=== PATIENT | male | born 1990 | race American Indian/Alaskan Native ===

== ENCOUNTER 2016-10-25 14:56 | Emergency (ER) | payer OTHER ==
--- NOTE | 2016-10-25 15:06 | Emergency Department Report ---
Chief Complaint: Adult Asthma Stated Complaint: ASTHMA Time Seen by Provider: 10/25/16 15:04 - HPI History of Present Illness: pt c/o asthma exacerbation since Tuesday. PT states he now has a pain under his R rib - ROS Review of Systems: + sob + chest pain - Exam Physical Exam: obese male no acute resp distress MSE screening note: Focused history and physical exam performed. Due to findings the following was ordered: ekg ED Disposition for MSE Condition: Stable
[2016-10-25 15:17] VITALS: BP 179/115
[2016-10-25 16:16] LABS: Bilirubin,Urine NEG (Negative); Blood,Urine SM (Negative); Ketones,Urine NEG (Negative); Leukocyte Esterase,Urine TR (Negative); Mucus,Urine FEW /HPF; Nitrite,Urine NEG (Negative); Protein,Urine <15 mg/dL mg/dL (Negative)
[2016-10-25 16:19] LABS: Alanine Aminotransferase 27 units/L (7-56); Albumin 4.5 g/dL (3.9-5); Albumin/Globulin Ratio 1.2 %; Alkaline Phosphatase 56 units/L (35-129); Anion Gap 19 mmol/L; Basophils % (Auto) 0.1 % (0.0-1.8); Blood Urea Nitrogen 8 mg/dL (9-20); Calcium 9.5 mg/dL (8.4-10.2); Carbon Dioxide 26 mmol/L (22-30); Chloride 96.2 mmol/L (98-107); Eosinophils % (Auto) 0.5 % (0.0-4.3); Glucose 90 mg/dL (75-100); Hemoglobin 13.5 gm/dl (11.8-15.2); Lipase 29 units/L (13-60); Potassium 3.9 mmol/L (3.6-5.0); Sodium 137 mmol/L (137-145); Total Protein 8.2 g/dL (6.3-8.2); White Blood Count 16.5 K/mm3 (4.5-11.0)
[2016-10-25 16:31] LABS: Hematocrit 42.1 % (35.5-45.6); Mean Corpuscular HGB Conc 32 % (32-34); Mean Corpuscular Hemoglobin 27 pg (28-32); Mean Corpuscular Volume 82 fl (84-94); Platelet Count 332 K/mm3 (140-440); Red Blood Count 5.14 M/mm3 (3.65-5.03); Red Cell Distribution Width 14.9 % (13.2-15.2)
--- NOTE | 2016-10-26 09:49 | XRay Report ---
ROUTINE CHEST, TWO VIEWS: History: Shortness of breath. PA and lateral views demonstrate the heart and mediastinal contour to be of normal size and shape. The lungs are clear and fully expanded and the soft tissues and bony structures are normal. IMPRESSION: Normal study.
== END 2016-10-25 19:25 | disposition left against medical advice (07) ==
LOC: ED 14:56
DX: R06.02 Shortness of breath (principal); R07.9 Chest pain, unspecified
CPT/HCPCS: 36415; 71020; 80053; 81001; 83690; 84484; 85025; 93005; 93010

== ENCOUNTER 2017-01-31 18:31 | Emergency (ER) | payer OTHER ==
[2017-01-31 19:07] VITALS: BP 157/96
[2017-01-31] MEDS ORDERED: BICILLIN L-A IM ONE (21:52)
[2017-01-31] MEDS ORDERED: XYLOCAINE 1% MPF 5 mL INFILTRATI ONE (21:53)
[2017-01-31] MEDS ORDERED: ZITHROMAX PO ONE (21:53)
[2017-01-31] MEDS ORDERED: ROCEPHIN IM ONE (21:53)
[2017-01-31] MEDS ORDERED: TORADOL IM ONE (22:02)
--- NOTE | 2017-01-31 22:03 | Emergency Department Report ---
- General Chief complaint: Skin Rash Stated complaint: STD SYMPTOMS Time Seen by Provider: 01/31/17 21:42 Source: patient Mode of arrival: Ambulatory Limitations: No Limitations - History of Present Illness MD complaint: rash -: Gradual (2-3WEEKS) Tetanus Up to Date: unsure Location: L hand, R hand, L foot, R foot Severity: severe Severity scale (0 -10): 0 Improves with: none Worsens with: none Context: other (ANAL SEX ANDORAL SEX,HOMOSEXUALITY) Associated symptoms: fever, chills Treatments Prior to Arrival: none - Related Data Allergies Allergy/AdvReac Type Severity Reaction Status Date / Time No Known Allergies Allergy Verified 10/25/16 15:18 Abscess Boil HPI - HPI Chief Complaint: Skin Rash Stated Complaint: STD SYMPTOMS Time Seen by Provider: 01/31/17 21:42 Duration: >1 Week Location: Lower Extremity (sole of his) Allergies/Adverse Reactions: Allergies Allergy/AdvReac Type Severity Reaction Status Date / Time No Known Allergies Allergy Verified 10/25/16 15:18 ED Review of Systems ROS: Stated complaint: STD SYMPTOMS Other details as noted in HPI Constitutional: denies: chills, fever Eyes: denies: eye pain, eye discharge, vision change ENT: denies: ear pain, throat pain Respiratory: denies: cough, shortness of breath, wheezing Cardiovascular: denies: chest pain, palpitations Endocrine: no symptoms reported Gastrointestinal: denies: abdominal pain, nausea, diarrhea Genitourinary: denies: urgency, dysuria Musculoskeletal: denies: back pain, joint swelling, arthralgia Skin: denies: rash, lesions Neurological: denies: headache, weakness, paresthesias Psychiatric: denies: anxiety, depression Hematological/Lymphatic: denies: easy bleeding, easy bruising ED Past Medical Hx - Past Medical History Hx Asthma: Yes Additional medical history: herpes - Surgical History Hx Appendectomy: Yes Additional Surgical History: tonsil - Social History Smoking Status: Never Smoker Substance Use Type: None ED Physical Exam - General Limitations: No Limitations General appearance: alert, in no apparent distress - Head Head exam: Present: atraumatic, normocephalic - Eye Eye exam: Present: normal appearance - ENT ENT exam: Present: mucous membranes moist - Neck Neck exam: Present: normal inspection - Respiratory Respiratory exam: Present: normal lung sounds bilaterally. Absent: respiratory distress - Cardiovascular Cardiovascular Exam: Present: regular rate, normal rhythm. Absent: systolic murmur, diastolic murmur, rubs, gallop - GI/Abdominal GI/Abdominal exam: Present: soft, normal bowel sounds - Rectal Rectal exam: Present: deferred - Extremities Exam Extremities exam: Present: normal inspection, full ROM, other (RDARK RASH ON BOTH SOLE OF FEET AND ON HANDS) - Back Exam Back exam: Present: normal inspection, full ROM - Neurological Exam Neurological exam: Present: alert, oriented X3, CN II-XII intact - Psychiatric Psychiatric exam: Present: normal affect, normal mood - Skin Skin exam: Present: warm, dry, intact, normal color. Absent: rash ED Course Vital Signs 01/31/17 18:58 Temperature 99 F Pulse Rate 104 H Respiratory 18 Rate Blood Pressure 157/96 O2 Sat by Pulse 99 Oximetry Critical care attestation.: If time is entered above; I have spent that time in minutes in the direct care of this critically ill patient, excluding procedure time. 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
[2017-02-01 11:37] LABS: Rapid Plasma Reagin Reactive (Nonreactive)
[2017-02-01 12:11] LABS: Rapid Plasma Reagin Ab Titer 1:32
== END 2017-02-01 00:25 | disposition home or self-care (01) ==
LOC: ED 18:31
DX: A51.49 Other secondary syphilitic conditions (principal)
CPT/HCPCS: 36415; 86592; 86593; 86780; 87591; 96372; 99283; J0561; J0696; J1885

== ENCOUNTER 2021-09-09 01:50 | Emergency (ER) | payer SELFPAY ==
[2021-09-09 03:20] VITALS: BP 166/106
== END 2021-09-09 15:20 | disposition left against medical advice (07) ==
LOC: ED 01:50
DX: R06.02 Shortness of breath (principal); Z53.21 Procedure and treatment not carried out due to patient leaving prior to being seen by health care provider